=== PATIENT | female | born 1970 | race Caucasian/White ===

== ENCOUNTER 2023-09-03 07:23 | Day surgery (SDC) | payer BC, OTHER ==
[~2023-09-03 07:23] MED LIST: Sodium Chloride 0.9% 10 ML Syringe FLUSH PRN; Sodium Chloride 0.9% 10 ML Syringe FLUSH SCH
[2023-09-03] MEDS: Lactated Ringers 1,000 ML IV SCH (07:58)
[2023-09-03] MEDS: Albuterol 0.083% 2.5 MG/3 ML Neb Soln NEB SCH (08:03)
[2023-09-03] MEDS ORDERED: Midazolam 1 MG/ML 2 ML SDV ONE (08:28)
[2023-09-03] MEDS ORDERED: Propofol 200 MG/20 ML SDV ONE ×2 (08:28→08:54)
[2023-09-03] MEDS ORDERED: fentaNYL 100 MCG/2 ML SDV ONE (08:52)
== END 2023-09-03 09:57 | disposition home or self-care (01) ==
LOC: JD.SDS 07:23
PROVIDERS: ATTEND Student in an Organized Health Care Education/Training Program
DX: Z12.11 Encounter for screening for malignant neoplasm of colon (principal); D12.0 Benign neoplasm of cecum; D12.8 Benign neoplasm of rectum; K57.30 Diverticulosis of large intestine without perforation or abscess without bleeding; F32.A Depression, unspecified; F17.210 Nicotine dependence, cigarettes, uncomplicated; Z79.899 Other long term (current) drug therapy; Z91.030 Bee allergy status
CPT/HCPCS: 45380; J2250; J2704; J3010; J7120; 00811; J7620-GY

== ENCOUNTER 2023-12-29 10:33 | Emergency (ER) | payer BC ==
[2023-12-29] MEDS ORDERED: Naloxone 0.4 MG/ML SDV IVPUSH PRN (11:38)
[2023-12-29 11:46] LABS: BASOPHILS ABSOLUTE AUTO 0.1 K/mm3 (0.0-0.2); BASOPHILS PERCENT AUTO 0.7 % (0.0-1.0); EOSINOPHILS ABSOLUTE AUTO 0.1 K/mm3 (0.0-0.4); EOSINOPHILS PERCENT AUTO 1.7 % (0.0-6.0); IMMATURE GRAN ABSOLUTE AUTO 0.02 K/mm3 (0.00-0.05); IMMATURE GRAN PERCENT AUTO 0.2 % (0.0-0.4); LYMPHOCYTES ABSOLUTE AUTO 3.5 K/mm3 (1.0-4.8); LYMPHOCYTES PERCENT AUTO 42.1 % (24.0-44.0); MEAN CORPUSCULAR HGB CONC 34.1 g/dl (32.0-36.0); MEAN CORPUSCULAR VOLUME 93.6 fl (83.0-99.0); MEAN PLATELET VOLUME 8.6 fl (9.4-12.3); MONOCYTES ABSOLUTE AUTO 0.5 K/mm3 (0.0-0.8); MONOCYTES PERCENT AUTO 6.4 % (0.0-8.0); NEUTROPHILS ABSOLUTE AUTO 4.1 K/mm3 (1.8-7.7); NEUTROPHILS PERCENT AUTO 48.9 % (41.0-71.0); PLATELET COUNT,PLT 329 K/mm3 (150-400); RED BLOOD CELL COUNT 4.38 M/mm3 (4.10-5.30); WHITE BLOOD CELL COUNT,WBC 8.38 K/mm3 (3.9-11.3)
[2023-12-29 11:47] LABS: APPEARANCE,URINE CLEAR (Clear); BILIRUBIN,URINE NEGATIVE (Negative); COLOR,URINE YELLOW (Yellow); GLUCOSE,URINE NEGATIVE (Negative); KETONES,URINE NEGATIVE (Negative); LEUKOCYTE ESTERASE,URINE NEGATIVE (Negative); NITRITE,URINE NEGATIVE (Negative); OCCULT BLOOD,URINE TRACE-LYSED (Negative); PROTEIN,URINE NEGATIVE (Negative); UROBILINOGEN,URINE 0.2 (0.2-1.0)
[2023-12-29] MEDS: fentaNYL 100 MCG/2 ML SDV IVPUSH ONE (11:48)
[2023-12-29] MEDS: Ondansetron 4 MG/2 ML SDV IVPUSH ONE (11:49)
[2023-12-29] MEDS: Lactated Ringers 1,000 ML IV ONE (11:49)
[2023-12-29] MEDS: Sodium Chloride 0.9% 10 ML Syringe FLUSH PRN (11:49)
[2023-12-29 11:54] LABS: BACTERIA,URINE FEW /hpf (FEW); EPITHELIAL CELLS,URINE 0-5 /hpf (0-5); MUCUS,URINE RARE /hpf (FEW); WBC,URINE 0-5 /hpf (0-5)
[2023-12-29 11:54] LABS: ALBUMIN 3.7 g/dl (3.4-5.0); ANION GAP 13.2 (5-15); BILIRUBIN TOTAL 0.3 mg/dL (0.2-1.0); CREATININE 0.6 mg/dL (0.55-1.02); EST CRCL DRUG DOSING (CG) 97.57 mL/min; POTASSIUM,K 4.2 mEq/L (3.5-5.1); PROTEIN TOTAL,TP 7.3 g/dl (6.4-8.2)
[2023-12-29 12:08] LABS: BUN/CREATININE RATIO 28.3 (14-18); CALCIUM 9.5 mg/dL (8.5-10.1)
[2023-12-29 12:42] LABS: C-REACTIVE PROTEIN 0.68 mg/dL (<0.30)
[2023-12-29] MEDS: Iopamidol 612 MG/ML 100 ML Bottle IVPUSH ONE (12:47)
[2023-12-29] MEDS: Sodium Chloride 0.9% 10 ML Syringe FLUSH ONE (12:47)
[2023-12-29] MEDS: Pantoprazole 40 MG Vial IVPUSH ONE (14:25)
== END 2023-12-29 14:30 | disposition home or self-care (01) ==
LOC: JD.ED 10:33
DX: R10.32 Left lower quadrant pain (principal); R11.2 Nausea with vomiting, unspecified; R19.7 Diarrhea, unspecified; Z91.030 Bee allergy status; Z79.899 Other long term (current) drug therapy; Z90.49 Acquired absence of other specified parts of digestive tract
CPT/HCPCS: 36415; 74177; 80053; 81001; 83690; 85025; 86140; 96361; 96374; 96375; 99284; J2405; J2470; J3010; J3490; J7120; Q9967

== ENCOUNTER 2025-03-02 11:34 | Emergency (ER) | payer BC ==
[2025-03-02] MEDS ORDERED: Sodium Chloride 0.9% 10 ML Syringe FLUSH PRN (12:03)
[2025-03-02 12:04] LABS: BASOPHILS ABSOLUTE AUTO 0.1 K/mm3 (0.0-0.2); BASOPHILS PERCENT AUTO 0.6 % (0.0-1.0); EOSINOPHILS ABSOLUTE AUTO 0.2 K/mm3 (0.0-0.4); EOSINOPHILS PERCENT AUTO 1.4 % (0.0-6.0); IMMATURE GRAN ABSOLUTE AUTO 0.04 K/mm3 (0.00-0.05); IMMATURE GRAN PERCENT AUTO 0.4 % (0.0-0.4); LYMPHOCYTES ABSOLUTE AUTO 4.1 K/mm3 (1.0-4.8); LYMPHOCYTES PERCENT AUTO 38.8 % (24.0-44.0); MEAN PLATELET VOLUME 8.3 fl (9.4-12.3); MONOCYTES ABSOLUTE AUTO 0.7 K/mm3 (0.0-0.8); MONOCYTES PERCENT AUTO 7.0 % (0.0-8.0); NEUTROPHILS ABSOLUTE AUTO 5.4 K/mm3 (1.8-7.7); NEUTROPHILS PERCENT AUTO 51.8 % (41.0-71.0); NRBC ABSOLUTE 0.00 (0.00-0.02); NRBC PERCENT 0.0 % (0.0-0.2); PLATELET COUNT,PLT 345 K/mm3 (150-400); RED BLOOD CELL COUNT 4.60 M/mm3 (4.10-5.30); WHITE BLOOD CELL COUNT,WBC 10.45 K/mm3 (3.9-11.3)
[2025-03-02] MEDS: Iopamidol 755 Mg/ML 100 ML Bottle IVPUSH ONE (12:04)
[2025-03-02] MEDS: Sodium Chloride 0.9% 10 ML Syringe FLUSH PRN (12:04)
[2025-03-02 12:20] LABS: INR 0.94
[2025-03-02 12:21] LABS: PTT,PARTIAL THROMBOPLSTIN TIME 28.0 SECONDS (21.7-31.4)
[2025-03-02 12:28] LABS: A/G RATIO 1.1 (1-2); ALANINE AMINOTRANSFERASE,ALT 20.0 U/L (14-59); ASPARTATE AMNIOTRANSFERASE,AST 19.0 U/L (15-37); BILIRUBIN TOTAL 0.4 mg/dL (0.2-1.0); BLOOD UREA NITROGEN,BUN 15.0 mg/dL (7-18); CARBON DIOXIDE,CO2 28.0 mEq/L (21-32); CHLORIDE,CL 105.0 mEq/L (98-107); CREATININE 0.9 mg/dL (0.55-1.02); EST CRCL DRUG DOSING (CG) 63.55 mL/min; ESTIMATED GFR 76.0 mL/min (>60); GLUCOSE RANDOM 94.0 mg/dL (70-99); POTASSIUM,K 3.8 mEq/L (3.5-5.1); PROTEIN TOTAL,TP 7.8 g/dl (6.4-8.2); SODIUM,NA 141.0 mEq/L (136-145)
[2025-03-02 12:29] LABS: TROPONIN I HIGH SENSITIVITY 105.0 pg/mL (<=51)
[2025-03-02] MEDS: Ketorolac 30 MG/ML SDV IVPUSH ONE (13:36)
[2025-03-02] MEDS: diphenhydrAMINE 50 MG/ML SDV IVPUSH ONE (13:37)
== END 2025-03-02 15:25 ==
LOC: JD.ED 11:34
DX: S06.6XAA Traumatic subarachnoid hemorrhage with loss of consciousness status unknown, initial encounter (principal); F17.210 Nicotine dependence, cigarettes, uncomplicated; Z91.030 Bee allergy status; Z88.5 Allergy status to narcotic agent; Z79.899 Other long term (current) drug therapy; Z86.16 Personal history of COVID-19; Z90.49 Acquired absence of other specified parts of digestive tract; W18.39XA Other fall on same level, initial encounter; Y93.89 Activity, other specified
CPT/HCPCS: 36415; 70450; 70450-26; 70496; 70496-26; 70498; 70498-26; 70551; 70551-26; 80053; 82947; 84484; 85025; 85610; 85730; 93005; 93010; 96374; 96375; 99285; 99285-25; A9270-GY; J1200; J1885; J2765; Q9967